=== PATIENT | male | born 1945 | race Caucasian/White ===

== ENCOUNTER → 2023-03-24 07:40 | Outpatient (BNVA) | payer MEDICARE, BC, SELFPAY | PROVIDERS: Family Provider Nurse Practitioner Family; PCP Nurse Practitioner Family; Referring Provider Nurse Practitioner Family; Visit Provider Specialist | DX: I70.90 Unspecified atherosclerosis (principal); Z86.73 Personal history of transient ischemic attack (TIA), and cerebral infarction without residual deficits | CPT/HCPCS: 99205 ==

== ENCOUNTER 2023-03-29 06:36 | Outpatient (CLI) | payer MEDICARE, BC, SELFPAY ==
[2023-03-29 07:11] LABS: Blood Urea Nitrogen 17 mg/dL (8-23)
[2023-03-29] MEDS: iohexol 350 mg/mL 500 mL Btl (per mL) IV (07:23)
--- NOTE | 2023-03-29 07:30 | CT_ITS ---
WS: [id number] CTA HEAD AND NECK TECHNIQUE: Contrast enhanced CTA of the head and neck with coronal and sagittal reformatted images an d maximum intensity projection (MIP) images. NASCET criteria utilized. CLINICAL INFORMATION: I65.09 - Occlusion and stenosis of unspecified vertebral ... COMPARISON: None. DLP: 1190.[address] scans at [facility] use at least one of these dose optimization techniques: automated e xposure control; mA and/or kV adjustment per patient size (includes targeted exams where dose is matc hed to clinical indication); or iterative reconstruction. FINDINGS: No evidence of intracranial hemorrhage or mass effect. Moderate small vessel changes with m oderate parenchymal volume loss. Low-attenuation change in the LEFT subcortical frontal lobe likely d ue to chronic ischemia. 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 Tiny chronic lacunar infarct LEFT caudate. Inspissated secretions with polypoid mucosal thickening LEFT maxillary sinus.Mastoid air cells are we ll aerated. Secretions within the RIGHT sphenoid sinus. Polypoid mucosal thickening RIGHT maxillary s inus. Polypoid mucosal thickening in the frontal ethmoidal recesses. Normal posterior nasopharynx. No rmal parapharyngeal fat. RIGHT: RIGHT common carotid artery is patent. Moderate calcified atheromatous disease RIGHT carotid b ulb extending into the ICA. Less than 50% ICA stenosis. ICA is patent to the skull base. LEFT: LEFT common carotid artery is patent. Moderate to advanced calcified atheromatous disease LEFT carotid bulb extending into the ICA. LEFT IC A stenosis measures 47%. LEFT ICA is patent to the skull base. Dominant RIGHT vertebral artery. 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 LEFT vertebral ar luc partially ends in PICA. Basilar artery is patent. Patent posterior communicating arteries. Normal vascularity to the [employer] territory bilaterally. Both ICAs are patent at the skull base. Moderate calcified atheromatous disease cavernous carotid art eries. Normal vascularity to the LANIE and MCA territories bilaterally. Patent anterior communicating a rtery. No evidence of proximal flow limiting stenosis or aneurysm. Calcification involving the proximal great vessels which remain patent. Mild stenosis LEFT proximal subclavian artery. RIGHT innominate and subclavian arteries are patent. Chronic emphysematous changes in the lung apices. CT/CT angio headneck* [id number] IMPRESSION: 1. No evidence of intracranial hemorrhage or mass effect. 2. Less than 50% RIGHT ICA stenosis. 3. LEFT ICA stenosis measures 47%. 4. RIGHT dominant vertebral artery. 5. 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 Moderate calcified atheromatous disease both cavernous carotid arteries rem ain patent. 7. No proximal flow limiting stenosis. 8. 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 9. Moderate small vessel changes with moderate parenchymal volume loss.
== END 2023-03-29 06:37 | disposition home or self-care (01) ==
PROVIDERS: Radiology Diagnostic Radiology; PCP Nurse Practitioner Family; Visit Provider Specialist
DX: I65.09 Occlusion and stenosis of unspecified vertebral artery (principal); I65.23 Occlusion and stenosis of bilateral carotid arteries; Z86.73 Personal history of transient ischemic attack (TIA), and cerebral infarction without residual deficits
CPT/HCPCS: 70496; 70498; 82565; 84520; Q9967

== ENCOUNTER → 2023-07-27 09:28 | Outpatient (BNVA) | payer MEDICARE, BC, SELFPAY | PROVIDERS: PCP Nurse Practitioner Family; Visit Provider Specialist | DX: I65.09 Occlusion and stenosis of unspecified vertebral artery (principal); I63.9 Cerebral infarction, unspecified | CPT/HCPCS: 99213 ==